=== PATIENT | male | born 1990 | race Caucasian/White ===

== ENCOUNTER 2017-11-21 08:07 | Inpatient (IN) | payer OTHER ==
[~2017-11-21] VITALS: Ht 170.2 cm; Wt 96.0 kg
[~2017-11-21 08:07] MED LIST: BACITRACIN 50,000 UNIT ONE; BUPIVACAINE/PF 0.5% ONE; EPINEPHRINE 1 MG/ML, 1ML ONE; LOSA50TA6 PO; NEOSPORIN OINT, 15GM ONE; THROMBIN 5,000 UNIT VIAL TP ONE
[2017-11-21] MEDS ORDERED: FENTANYL PF 250 MCG/5ML ONE (08:31)
[2017-11-21] MEDS ORDERED: PROPOFOL 50 ML ONE (08:31)
[2017-11-21] MEDS ORDERED: MIDAZOLAM 1 MG/ML, 2ML ONE (08:31)
[2017-11-21] MEDS ORDERED: LIDOCAINE GEL 2%, 5ML ONE (08:35)
[2017-11-21] MEDS ORDERED: ONDANSETRON ODT 8 MG PO ONE (09:00)
[2017-11-21] MEDS ORDERED: LACTATED RINGERS 1,000 ML IV SCH (09:00)
[2017-11-21] MEDS ORDERED: GABAPENTIN 300 MG CAPSULE PO ONE (09:00)
[2017-11-21] MEDS ORDERED: OxyconTIN ER 20 MG TAB.ER PO ONE (09:00)
[2017-11-21] MEDS ORDERED: ACETAMINOPHEN 500 MG TABLET PO ONE (09:00)
[2017-11-21] MEDS ORDERED: ONDANSETRON 2MG/ML, 2ML ONE (09:17)
[2017-11-21] MEDS ORDERED: PROPOFOL 10 MG/ML, 20ML ONE (09:17)
[2017-11-21] MEDS ORDERED: CEFAZOLIN 1,000 MG ONE (09:17)
[2017-11-21] MEDS ORDERED: DEXAMETHASONE 4 MG/ML, 1ML ONE (09:17)
[2017-11-21] MEDS ORDERED: SUCCINYLCHOLINE 20 MG/ML, 10ML ONE (09:17)
[2017-11-21 09:36] VITALS: BP 134/89
[2017-11-21] MEDS ORDERED: DIAZEPAM 5 MG TABLET PO ONE (10:00)
[2017-11-21] MEDS ORDERED: MEPERIDINE/PF 25MG/0.5ML IVPush PRN (12:00)
[2017-11-21] MEDS ORDERED: PROMETHAZINE 25 MG SUPP PR PRN (12:00)
[2017-11-21] MEDS ORDERED: MIDAZOLAM 1 MG/ML, 2ML IV PRN (12:00)
[2017-11-21] MEDS ORDERED: OXYcodone 5 MG/5 ML ORAL.SOL UDC PO PRN (12:00)
[2017-11-21] MEDS ORDERED: MORPHINE SULFATE 4 MG/ML, 1ML IVPush PRN (12:00)
[2017-11-21] MEDS ORDERED: PROMETHAZINE 25 MG/ML, 1ML IV PRN (12:00)
[2017-11-21] MEDS ORDERED: ALBUTEROL/IPRATROPIUM 2.5MG/0.5MG, 3 ML NPPB PRN (12:00)
[2017-11-21] MEDS ORDERED: LORazepam 2 MG/ML, 1ML IVPush PRN (12:00)
[2017-11-21] MEDS ORDERED: SCOPOLAMINE PATCH, 1.5MG PATCH.TD72 TD PRN (12:00)
[2017-11-21] MEDS ORDERED: DIAZEPAM 5 MG/ML, 2ML IVPush PRN (12:00)
[2017-11-21] MEDS ORDERED: FENTANYL PF 100 MCG/2ML IV PRN (12:00)
[2017-11-21] MEDS ORDERED: LABETALOL 5MG/ML, 20ML IV PRN ×2 (12:00→14:30)
[2017-11-21] MEDS ORDERED: hydrALAzine 20 MG/ML, 1ML IV PRN (12:00)
[2017-11-21] MEDS ORDERED: FENTANYL PF 100 MCG/2ML ONE (12:55)
[2017-11-21 14:16] VITALS: BP 124/76
[2017-11-21] MEDS ORDERED: DIAZEPAM 5 MG TABLET PO PRN (14:30)
[2017-11-21] MEDS ORDERED: morphine SULFATE 10 MG/ML, 1ML IV PRN (14:30)
[2017-11-21] MEDS ORDERED: DIPHENHYDRAMINE 50 MG/ML, 1ML IVPush PRN (14:30)
[2017-11-21] MEDS ORDERED: ONDANSETRON 2MG/ML, 2ML IV PRN (14:30)
[2017-11-21] MEDS ORDERED: DIAZEPAM 5 MG/ML, 2ML IV PRN (14:30)
[2017-11-21] MEDS: NS + 20MEQ KCL 1,000 ML IV SCH ×2 (14:30→23:40)
[2017-11-21] MEDS ORDERED: DIPHENHYDRAMINE 50 MG CAPSULE PO PRN (14:30)
[2017-11-21] MEDS ORDERED: MAGNESIUM HYDROXIDE 8%, 30ML UDC PO PRN (14:30)
[2017-11-21] MEDS ORDERED: ACETAMINOPHEN 650 MG SUPP PR PRN (14:30)
[2017-11-21] MEDS ORDERED: ACETAMINOPHEN 325 MG TABLET PO PRN (14:30)
[2017-11-21] MEDS ORDERED: HYDROcodone/APAP 10/325 MG TABLET PO PRN (14:30)
[2017-11-21] MEDS ORDERED: PROMETHAZINE 25 MG/ML, 1ML IM PRN (14:30)
[2017-11-21] MEDS ORDERED: BISACODYL 10 MG SUPP PR PRN (14:30)
[2017-11-21 19:30] VITALS: BP 125/72
[2017-11-21] MEDS: CEFAZOLIN 1,000 MG in SODIUM CHLORIDE 0.9% 50 ML IVPB SCH (19:50)
[2017-11-21] MEDS ORDERED: ZOLPIDEM 5MG TABLET PO PRN (21:00)
[2017-11-22] MEDS ORDERED: HYDR-3240 PO (00:03)
[2017-11-22] MEDS ORDERED: CYCL-259 PO (00:04)
[2017-11-22] MEDS ORDERED: SENN1TAB67 PO (00:05)
[2017-11-22 00:07] VITALS: BP 118/61
[2017-11-22] MEDS: CEFAZOLIN 1,000 MG in SODIUM CHLORIDE 0.9% 50 ML IVPB SCH (04:08)
[2017-11-22 04:14] VITALS: BP 120/68
[2017-11-22 07:15] VITALS: BP 125/73
[2017-11-22] MEDS ORDERED: SENNA/DOCUSATE TABLET PO SCH (09:00)
== END 2017-11-22 11:05 | disposition home or self-care (01) | DRG 520 ==
LOC: ORIP 08:07 → 4NOR 13:45 → DCLOUNGE 11-22 10:48
PROVIDERS: ADMIT Neurological Surgery; ATTEND Neurological Surgery
PROC: 01NB0ZZ Release Lumbar Nerve, Open Approach (ICD-10-PCS; 2017-11-21)
PROC: 0SB40ZZ Excision of Lumbosacral Disc, Open Approach (ICD-10-PCS; principal; 2017-11-21 10:00)
PROC: 5A09357 Assistance with Respiratory Ventilation, Less than 24 Consecutive Hours, Continuous Positive Airway Pressure (ICD-10-PCS; 2017-11-22)
DX: M51.17 Intervertebral disc disorders with radiculopathy, lumbosacral region (principal); G47.33 Obstructive sleep apnea (adult) (pediatric); I10 Essential (primary) hypertension; Z79.899 Other long term (current) drug therapy
CPT/HCPCS: 72100; J0171; J0690; J1100; J2250; J2405; J2704; J3010; J3490; Q0162; J0330; J7120